=== PATIENT | male | born 1955 | race Caucasian/White ===

== ENCOUNTER → 2016-07-19 | Outpatient (CLI) | payer OTHER ==
[~2016-07-19] MED LIST: ADVIL200 MG PO; ASPIRIN EC325 MG PO; CPAP INH; HYTRIN **IA 9/2 MG PO; LISINOPRIL-HCT1 EAC1 PO; TENORMIN100 MG PO; ULTRAM50 MG PO
== END | disposition disaster alternative care site (69) ==
LOC: GOPD 07-14 09:30
PROC: 3E0R33Z Introduction of Anti-inflammatory into Spinal Canal, Percutaneous Approach (ICD-10-PCS; principal; 2016-07-19)
PROC: 3E0R3BZ Introduction of Anesthetic Agent into Spinal Canal, Percutaneous Approach (ICD-10-PCS; 2016-07-19)
DX: M48.06 Spinal stenosis, lumbar region (principal); M54.5 Low back pain
CPT/HCPCS: J1030

== ENCOUNTER → 2016-12-07 | Outpatient (CLI) | payer OTHER | END | disposition disaster alternative care site (69) | LOC: GNJRC 10:21 | DX: Z01.812 Encounter for preprocedural laboratory examination (principal); M17.12 Unilateral primary osteoarthritis, left knee ==